=== PATIENT | male | born 1985 | race Two or more races ===

== ENCOUNTER → 2023-11-30 14:19 | Outpatient (REF) | payer OTHER, SELFPAY | LOC: HWRAD 14:19 | PROVIDERS: ATTENDING PHYSICIAN Nurse Practitioner Family; FAMILY PHYSICIAN Family Medicine | DX: Z20.2 Contact with and (suspected) exposure to infections with a predominantly sexual mode of transmission (principal); N50.812 Left testicular pain | CPT/HCPCS: 76870; 93976 ==